=== PATIENT | female | born 1985 | race Caucasian/White ===

== ENCOUNTER → 2016-11-18 | Outpatient (CLI) | payer OTHER ==
[2016-07-14 18:05] VITALS: BP 120/76
[~2016-11-18] MED LIST: METR500T PO; NITR100C62 PO; PREN1TAB27 PO
--- NOTE | 2016-11-18 16:33 | RAD ---
Indication: Dysphagia. Thyromegaly. Technique: Thyroid ultrasound was performed. No comparison is available. Findings: Right thyroid lobe is enlarged, 6.3 x 2.0 x 2.7 cm in size. The left measures 5.0 x 1.5 x 1.4 cm. The isthmus measures 4 mm. There is a dominant solid nodule in the right thyroid lobe measuring 3.5 cm. Color flow within the thyroid is not increased or decreased. Impression: Dominant right thyroid nodule, solid.
== END | disposition home or self-care (01) ==
LOC: US 12:57
PROVIDERS: ATTEND Specialist
DX: E01.0 Iodine-deficiency related diffuse (endemic) goiter (principal)
CPT/HCPCS: 76536

== ENCOUNTER 2016-12-16 08:50 | Day surgery (SDC) | payer OTHER ==
[~2016-12-16] VITALS: Ht 165.1 cm; Wt 87.1 kg
[~2016-12-16 08:50] MED LIST changes: +BUPIVAC MPF-EPI 0.5%-1:200000 30 ML VIAL. ONE; +CEFOXITIN 2GM IVPB FOR OMNI 100 ML IV PRN; +DOCU-27 PO; +FENTANYL PF 100 MCG/2 ML VIAL. IV PRN; +GELATIN SPONGE SIZE 100. ONE; +HYDROMORPHONE 2 MG/ML VIAL. IV PRN; +IV RINGERS,LACTATED 1000ML 1,000 ML IV SCH; +LIDOCAINE 1% 1 ML SYRINGE. ID PRN; +MORPHINE SULFATE 2 MG/ML DISP.SYRIN. IV PRN; +ONDANSETRON PF 4 MG/2 ML VIAL. IV PRN; +POLY17PO5 PO; +PROCHLORPERAZINE 10 MG/2 ML VIAL. IV PRN
[2016-12-16 09:48] LABS: NEG OBC UR NEG; POS OBC UR POS
[2016-12-16] MEDS ORDERED: PROPOFOL 20 ML IV ONE (10:51)
[2016-12-16] MEDS ORDERED: FENTANYL PF 100 MCG/2 ML VIAL. ONE (10:51)
[2016-12-16] MEDS ORDERED: LIDOCAINE 2% 100 MG/5 ML SYRINGE. ONE (10:51)
[2016-12-16] MEDS ORDERED: EPHEDRINE PF IN SALINE 50 MG/5 ML DISP.SYRIN. IV ONE (11:01)
[2016-12-16] MEDS ORDERED: DESFLURANE 16 TO 30 MINUTES. IH ONE (11:01)
[2016-12-16] MEDS ORDERED: DEXAMETHASONE SOD PHOS 20 MG/5 ML VIAL. ONE (11:01)
[2016-12-16] MEDS ORDERED: ONDANSETRON PF 4 MG/2 ML VIAL. ONE (11:08)
[2016-12-16] MEDS ORDERED: ONDA4TAB7 PO (11:41)
[2016-12-16] MEDS ORDERED: OXYC-323 PO (11:41)
--- NOTE | 2016-12-16 11:42 | PDOC ---
BRIEF OPERATIVE NOTE Pre-Op Diagnosis hemorrhoid eua, hemorrhoidectomy mayco teixeira ebl 10 ivf 400 scarlet well to rr stable. UMU LOCO MD Dec 16, 2016 11:42
[2016-12-16] MEDS ORDERED: KETOROLAC TROMETHAMINE 30 MG/ML INJ. ONE (11:43)
[2016-12-16] MEDS: FENTANYL PF 100 MCG/2 ML VIAL. IV PRN ×2 (12:00→12:19)
[2016-12-16] MEDS ORDERED: OXYCODONE/APAP 5/325 TABLET. ONE (12:22)
[2016-12-16] MEDS ORDERED: KETOROLAC TROMETHAMINE 30 MG/ML INJ. IV ONE (12:30)
[2016-12-16 12:53] VITALS: BP 112/60
[2016-12-16] MEDS ORDERED: OXYCODONE/APAP 5/325 TABLET. PO ONE (13:00)
--- NOTE | 2016-12-16 17:52 | OP ---
DATE OF SURGERY: 12/16/2016 PREOPERATIVE DIAGNOSIS: Hemorrhoids. POSTOPERATIVE DIAGNOSIS: Hemorrhoids. PROCEDURES: 1. Exam under anesthesia. 2. Single column internal and external hemorrhoidectomy. 3. Single column external hemorrhoidectomy. SURGEON: Umu Loco M.D. ANESTHESIA: General. ESTIMATED BLOOD LOSS: 10 mL. IV FLUIDS: 400 mL. INDICATIONS: The patient is a 31-year-old female who presents with hemorrhoids that she would like to have excised. DESCRIPTION OF PROCEDURE: After informed consent was obtained, the patient was taken to the operating room and placed in supine position. After adequate induction of general anesthesia, she was placed on left lateral side and she was prepped and draped in usual sterile fashion with her buttocks taped apart. Local was used to perform a perianal block and then digital exam was performed which revealed decreased tone as expected, no gross blood, no rectal masses. She had a very large external hemorrhoid tag anteriorly and then she had a prolapsing left lateral hemorrhoid. A speculum was used to perform an exam under anesthesia circumferentially in the anal canal and there was minimal hemorrhoidal disease other than what was described. Using the LigaSure impact, the hemorrhoid on the left was elevated. The skin of the external hemorrhoid was incised with a scalpel and then the handheld LigaSure was then used to excise the hemorrhoid at its space. The care was taken to make sure that the sphincter muscles were left undisturbed with 2-0 chromic suture was then used to close the mucosal defect and care was taken to reapproximate the dentate line. The area was hemostatic. Her large external anteriorly located hemorrhoid was then incised at the skin at its base with a scalpel and then LigaSure was then used to remove the hemorrhoid. The dermal defect was then closed with 2-0 chromic in a running fashion. The patient's anal canal was inspected and was hemostatic and she was then transferred in stable condition, extubated, awaken to the recovery room. UMU LOCO MD DR: REYNALDO/pako JOB#: [id number] / [id number] Deangelo Grey
--- NOTE | 2016-12-17 15:39 | PATHOLOGY ---
PATHOLOGY REPORT * * * * * * * * FINAL DIAGNOSIS: A. Skin and anorectal mucosa and underlying soft tissue, left lateral hemorrhoids: - Hemorrhoids. B. Skin, external anterior hemorrhoids: - Fibroepithelial polyp showing focal chronic inflammation. COMMENT: There is no evidence of malignancy. (ANNAM:; d/t: 12/17/16) REPORT ELECTRONICALLY SIGNED BY: Sherman Dotson M.D. DATE/TIME: 12/17/2016 15:37 * * * * * * * * GROSS PATHOLOGY: A. Received in formalin labeled "Gretta Gill and left lateral hemorrhoid," are 2 segments of hogan-pink epithelial covered tissue measuring 0.8 x 0.4 x 0.3 cm and 2.8 x 1.5 x 1.2 cm in maximum dimensions. The epithelial surfaces appear intact, without grossly apparent lesions. On cut section, the subepithelial tissue has a highly vascular appearance. [employer] Specialist tissue is submitted in cassette A1. B. Received in formalin labeled "Gretta Gill and external anterior hemorrhoid," is a segment of hogan-pink epithelial covered tissue measuring 2.4 x 1.3 x 0.7 cm. The epithelial surface appears intact, without grossly apparent lesions. On cut section, the subepithelial tissue has an edematous appearance. Employment Law Specialist tissue is submitted in cassette B1. (TTL; 12/16/2016) INITIAL CPT CODE(S): A; 96185 B; 05273 Professional services [place] [facility] [place] [address] Technical services performed by [facility] at [address] [place] [address], [facility] [address] [place] [address]. SPECIMEN(S) RECEIVED: A.Left lateral hemorrhoids B.External anterior hemorrhoids CLINICAL HISTORY: Internal and external hemorrhoids PATIENT: GRETTA GILL /AGE: 2 1985 (Age: 31) PATIENT #: [id number] ALT CASE #: SPECIMEN COLLECTION DATE: 12/16/2016 SPECIMEN RECEIVED DATE: 12/16/2016 [facility] - [address] [place] [address] - PHONE: [phone] * * * END OF REPORT * * *
== END 2016-12-16 13:15 | disposition home or self-care (01) ==
LOC: SURG 08:50
PROVIDERS: ATTEND Surgery
DX: K64.8 Other hemorrhoids (principal); F32.9 Major depressive disorder, single episode, unspecified; Z98.51 Tubal ligation status
CPT/HCPCS: 46999; 81025; A4215; J0780; J1100; J1885; J2405; J2704; J3010; J3490

== ENCOUNTER 2017-01-01 13:16 | Emergency (ER) | payer OTHER ==
[~2017-01-01 13:16] MED LIST changes: -BUPIVAC MPF-EPI 0.5%-1:200000 30 ML VIAL. ONE; -CEFOXITIN 2GM IVPB FOR OMNI 100 ML IV PRN; -FENTANYL PF 100 MCG/2 ML VIAL. IV PRN; -GELATIN SPONGE SIZE 100. ONE; -HYDROMORPHONE 2 MG/ML VIAL. IV PRN; -IV RINGERS,LACTATED 1000ML 1,000 ML IV SCH; -LIDOCAINE 1% 1 ML SYRINGE. ID PRN; -MORPHINE SULFATE 2 MG/ML DISP.SYRIN. IV PRN; +ONDA4TAB7 PO; -ONDANSETRON PF 4 MG/2 ML VIAL. IV PRN; +OXYC-323 PO; -PROCHLORPERAZINE 10 MG/2 ML VIAL. IV PRN
[2017-01-01 14:05] VITALS: BP 127/72
[2017-01-01] MEDS: LIDOCAINE 1% / SOD BICARB 8.4% 20 ML VIAL. IJ ONE ×2 (14:30→14:31)
[2017-01-01] MEDS ORDERED: DIPHTH,PERTUSS(ACELL),TET TOX 0.5 ML DISP.SYRIN. VAX IM ONE (14:30)
[2017-01-01] MEDS ORDERED: HYDROCODONE/APAP 5/325MG TABLET. PO ONE (14:30)
[2017-01-01] MEDS ORDERED: HYDR-971 PO (14:47)
[2017-01-01] MEDS ORDERED: CLIN-44 PO (14:47)
--- NOTE | 2017-01-01 14:48 | PHYS DOC ---
Past Medical History Past Medical History: Other Additional Past Medical Histor: Hemmorrhoids, thyroid mass Past Surgical History: Tubal ligation Additional Past Surgical Histo: ortho right arm, hemmorrhoidectomy Alcohol Use: None Drug Use: None Adult General Chief Complaint Chief Complaint: ABSCESS HPI HPI Patient is a 31 year old female with no significant medical history who presents with an abscess on the left inner thigh that she noted 3 days ago. Patient states she's been using a warm compress on the abscess. Patient denies any drainage from the area. Review of Systems Review of Systems Constitutional: See history of present illness Musculoskeletal: Denies back pain or joint pain [] Integument: Left inner thigh abscess Neurologic: Denies headache, focal weakness or sensory changes [] Endocrine: Denies polyuria or polydipsia [] Current Medications Current Medications Current Medications Medications (Trade) Dose Ordered Sig/Sharona Start Time Stop Time Status Last Admin Dose Admin Acetaminophen/ Hydrocodone Bitart (Lortab 5/325) 1 tab 1X ONCE 01/01/17 14:30 01/01/17 14:31 DC 01/01/17 14:31 1 TAB Diphtheria/ Tetanus/Acell Pertussis (Boostrix) 0.5 ml ONCE ONCE 01/01/17 14:30 01/01/17 14:31 DC 01/01/17 14:34 0.5 ML Lidocaine/Sodium Bicarbonate (Buffered Lidocaine 1%) 20 ml 1X ONCE 01/01/17 14:30 01/01/17 14:52 DC Allergies Allergies Allergies Coded Allergies Type Severity Reaction Last Updated Verified No Known Drug Allergies 12/16/16 No Physical Exam Physical Exam Constitutional: Well developed, well nourished, no acute distress, non-toxic appearance. [] HENT: Normocephalic, atraumatic, bilateral external ears normal, oropharynx moist, no oral exudates, nose normal. [] Skin: Left inner thigh with a 90 related area of cellulitis approximately 4 x 3 cm. There is a 1 x 1 cm or firmness in the middle of the area. This no fluctuance to the area. The area is warm to touch and very tender. Normal neurovascular exam on the left lower extremity. Back: No tenderness, no CVA tenderness. [] Extremities: No tenderness, no cyanosis, no clubbing, ROM intact, no edema. [] Neurologic: Alert and oriented X 3, normal motor function, normal sensory function, no focal deficits noted. [] Psychologic: Affect normal, judgement normal, mood normal. [] Current Patient Data Vital Signs Vital Signs Date Time Temp Pulse Resp B/P Pulse Ox O2 Delivery O2 Flow Rate FiO2 01/01/17 14:31 16 98 Room Air 01/01/17 14:05 98.4 77 98.4 EKG EKG [] Radiology/Procedures Radiology/Procedures [] Course & Med Decision Making Course & Med Decision Making Pertinent Labs and Imaging studies reviewed. (See chart for details) Patient is in the ED with an area of cellulitis with possible abscess formation on the left lower extremity is nothing to drain today. She was given tetanus in the ED. Discharged with clindamycin for 10 days. Warm compresses recommended. Follow-up with primary care doctor in one week. Dragon Disclaimer Dragon Disclaimer This electronic medical record was generated, in whole or in part, using a voice recognition dictation system. Departure Departure Impression: Primary Impression: Abscess of lower extremity Additional Impression: Lower extremity cellulitis Disposition: 01 HOME, SELF-CARE Condition: STABLE Referrals: DORINDA PETIT MD (PCP) Follow-up with the primary care doctor in 1-2 weeks Patient Instructions: Abscess Additional Instructions: You were seen for an abscess of the left inner thigh. Keep the area clean and dry. Apply warm compresses to the area 2- 3 times a day. Follow-up with your primary care doctor in one week. Come back to the ED if symptoms worsen or if you develop any new concerning symptoms. Complete your antibiotics. You were given tetanus in the ED today. Scripts Hydrocodone/Apap 5-325 ([place] 5-325 Tablet)1 Each Tablet1-2 Tab PO Q4-6HRS #12 TAB Prov:KUNAL LLANOS APRN 01/01/17 Clindamycin Hcl 150 Mg Capsule3 Cap PO TID #90 CAP Prov:KUNAL LLANOS APRN 01/01/17 Problem Qualifiers Additional Impression: Lower extremity cellulitis Laterality: left Qualified Code: L03.116 - Cellulitis of left lower limb KUNAL LLANOS APRN Jan 01, 2017 14:48
== END 2017-01-01 14:52 | disposition home or self-care (01) ==
LOC: ER 13:16
DX: L03.116 Cellulitis of left lower limb (principal)
CPT/HCPCS: 90471; 90715; 99283-25

== ENCOUNTER 2017-02-07 14:13 | Emergency (ER) | payer OTHER ==
[~2017-02-07] VITALS: Ht 167.6 cm; Wt 86.2 kg
[~2017-02-07 14:13] MED LIST changes: +CLIN-44 PO; +HYDR-971 PO; +POLY17PO29 PO; -POLY17PO5 PO
--- NOTE | 2017-02-07 15:03 | PHYS DOC ---
Past Medical History Past Medical History: Other Additional Past Medical Histor: Hemmorrhoids, thyroid mass Past Surgical History: Tubal ligation Additional Past Surgical Histo: ortho right arm, hemmorrhoidectomy Alcohol Use: None Drug Use: None Adult General Chief Complaint Chief Complaint: ABSCESS HPI HPI Patient is a 31 year old female with history of abscesses who presents today with left lower abdominal abdominal abscess that began 3 days ago. Patient states she was treated for another abscess 3 weeks ago. Review of Systems Review of Systems Constitutional: Denies fever or chills [] Eyes: Denies change in visual acuity, redness, or eye pain [] HENT: Denies nasal congestion or sore throat [] Musculoskeletal: Denies back pain or joint pain [] Integument: left lower abdominal abdominal abscess Neurologic: Denies headache, focal weakness or sensory changes [] Endocrine: Denies polyuria or polydipsia [] Allergies Allergies Allergies Coded Allergies Type Severity Reaction Last Updated Verified No Known Drug Allergies 12/16/16 No Physical Exam Physical Exam Constitutional: Well developed, well nourished, no acute distress, non-toxic appearance. [] HENT: Normocephalic, atraumatic, bilateral external ears normal, oropharynx moist, no oral exudates, nose normal. [] Skin: Left lower abdomen with an area of cellulitis approximately 5 x 4 cm. There is no drainage to the area. The area is warm to touch. No fluctuance. Back: No tenderness, no CVA tenderness. [] Extremities: No tenderness, no cyanosis, no clubbing, ROM intact, no edema. [] Neurologic: Alert and oriented X 3, normal motor function, normal sensory function, no focal deficits noted. [] Psychologic: Affect normal, judgement normal, mood normal. [] EKG EKG [] Radiology/Procedures Radiology/Procedures [] Course & Med Decision Making Course & Med Decision Making Pertinent Labs and Imaging studies reviewed. (See chart for details) Patient has cellulitis to the left lower abdomen. She was discharged with Bactrim for 10 days and Bactroban. She was given a prescription for hydrocodone. She is to follow-up with her PCP in 1-2 weeks. Her tetanus is up-to -date. Dragon Disclaimer Dragon Disclaimer This electronic medical record was generated, in whole or in part, using a voice recognition dictation system. Departure Departure Impression: Primary Impression: Cellulitis of left abdominal wall Disposition: 01 HOME, SELF-CARE Condition: STABLE Referrals: DORINDA PETIT MD (PCP) Follow-up with the primary care doctor in one week Patient Instructions: Cellulitis, [id number] Additional Instructions: You were seen for cellulitis of the left lower abdomen. Take the prescribed medicines as ordered. Ensure you complete your oral antibiotics. Follow-up with the primary care doctor in 1-2 weeks. Scripts Mupirocin Calcium (BACTROBAN CREAM) 15 Gm Cream..g. 1 PRIYA TP BID, #1 EACH Apply to the affected area twice a day Prov: KUNAL LLANOS APRN 02/07/17 Sulfamethoxazole/Trimethoprim (BACTRIM DS TABLET) 1 Each Tablet 1 TAB PO BID, #20 TAB Prov: KUNAL LLANOS APRN 02/07/17 KUNAL LLANOS APRN Feb 07, 2017 15:03
[2017-02-07] MEDS ORDERED: SULF1TAB24 PO (15:12)
[2017-02-07] MEDS ORDERED: MUPI15CR TP (15:12)
[2017-02-07 15:20] VITALS: BP 125/93
[2017-02-08] MEDS ORDERED: HYDR-971 PO (22:13)
== END 2017-02-07 15:27 | disposition home or self-care (01) ==
LOC: ER 14:13
DX: L03.311 Cellulitis of abdominal wall (principal); Z98.51 Tubal ligation status
CPT/HCPCS: 99283

== ENCOUNTER 2017-02-08 20:53 | Emergency (ER) | payer OTHER ==
[~2017-02-08] VITALS: Ht 167.6 cm; Wt 86.2 kg
[~2017-02-08 20:53] MED LIST changes: -CLIN-44 PO; +CLIN150C14 PO; +DOCU-109 PO; -DOCU-27 PO; +MUPI15CR TP; +SULF1TAB24 PO
--- NOTE | 2017-02-08 21:56 | PHYS DOC ---
Past Medical History Past Medical History: Other Additional Past Medical Histor: Hemmorrhoids, thyroid mass Past Surgical History: Tubal ligation Additional Past Surgical Histo: ortho right arm, hemmorrhoidectomy Alcohol Use: None Drug Use: None Adult General Chief Complaint Chief Complaint: SKIN RASH/ABSCESS [facility] HPI Patient is a 31 year old female with a history of abscesses who presents with abdominal abscess for the last 3-4 days. Patient was in the ED yesterday. We started her on Bactrim. She presents today stating the infection has not improved. She has taken the medicine less than 24 hours. Patient denies any fever. She is also complaining of pain and wants something for pain. Patient denies any chills nausea vomiting. Her tetanus is up-to-date. Review of Systems Review of Systems Constitutional: Denies fever or chills [] Eyes: Denies change in visual acuity, redness, or eye pain [] HENT: Denies nasal congestion or sore throat [] Respiratory: Denies cough or shortness of breath [] Cardiovascular: No additional information not addressed in HPI [] GI: Denies abdominal pain, nausea, vomiting, bloody stools or diarrhea [] : Denies dysuria or hematuria [] Musculoskeletal: Denies back pain or joint pain [] Integument: abdominal abscess Neurologic: Denies headache, focal weakness or sensory changes [] Endocrine: Denies polyuria or polydipsia [] Current Medications Current Medications Current Medications Medications (Trade) Dose Ordered Sig/Sharona Start Time Stop Time Status Last Admin Dose Admin Acetaminophen/ Hydrocodone Bitart (Lortab 5/325) 1 tab 1X ONCE 02/08/17 22:00 02/08/17 22:01 DC Ceftriaxone Sodium 50 ml @ 100 mls/hr 1X ONCE 02/08/17 22:00 02/08/17 22:29 Lidocaine HCl (Xylocaine-Mpf 1% Vial) 2 ml 1X ONCE 02/08/17 22:00 02/08/17 22:01 DC Allergies Allergies Allergies Coded Allergies Type Severity Reaction Last Updated Verified No Known Drug Allergies 12/16/16 No Physical Exam Physical Exam Constitutional: Well developed, well nourished, no acute distress, non-toxic appearance. [] HENT: Normocephalic, atraumatic, bilateral external ears normal, oropharynx moist, no oral exudates, nose normal. [] Eyes: PERRLA, EOMI, conjunctiva normal, no discharge. [] Neck: Normal range of motion, no tenderness, supple, no stridor. [] Cardiovascular:Heart rate regular rhythm, no murmur [] Lungs & Thorax: Bilateral breath sounds clear to auscultation [] Abdomen: Bowel sounds normal, soft, no tenderness, no masses, no pulsatile masses. [] Skin: left lower abdomen with a large area of cellulitis bigger that when i saw patient yesterday. The area is warm but not TTP. Back: No tenderness, no CVA tenderness. [] Extremities: No tenderness, no cyanosis, no clubbing, ROM intact, no edema. [] Neurologic: Alert and oriented X 3, normal motor function, normal sensory function, no focal deficits noted. [] Psychologic: Affect normal, judgement normal, mood normal. [] EKG EKG [] Radiology/Procedures Radiology/Procedures [] Course & Med Decision Making Course & Med Decision Making Pertinent Labs and Imaging studies reviewed. (See chart for details) Patient is in the ED with cellulitis of the left lower abdomen that began 3-4 days ago. Patient was seen in the ED by me yesterday for the same complaint. The area has grown bigger. She was started on Bactrim and Bactroban cream. She has no fever. I talked to patient about admission compared to outpatient treatment. Patient states she has a 7-month-old baby and cannot be away from the baby. I had offered to switch the prescription to another antibiotics. She states she would like to keep taking the Bactrim because she has only taken it for one day and would like something for pain. She also states she took clindamycin a couple days prior to coming to the ED. The clindamycin was from a previous prescription that she never finished. Gave patient the risk of leaving. She was given Rocephin 1 g IM in the ED. She was also given a prescription for hydrocodone and encouraged to take the Bactrim and Bactroban cream. Informed patient she is welcomed to return to the ED at any for admission if the infection is not improving. Requested patient she can return to the ED in 2 days and will take a look at the infection to make sure it's improving. Renate Disclaimer Renate Disclaimer This electronic medical record was generated, in whole or in part, using a voice recognition dictation system. Departure Departure Impression: Primary Impression: Abdominal wall cellulitis Disposition: HOME, SELF-CARE Condition: STABLE Referrals: DORINDA PETIT MD (PCP) Follow-up with the emergency room in 2 days for wound check Patient Instructions: Cellulitis, [id number] Additional Instructions: You were seen for cellulitis of the left lower abdomen. The area has increased in size. We offered you admission to the hospital for IV antibiotics. You preferred to go home. We put you on pain medicine and continue taking the Bactrim and using Bactroban cream. Come back in 2 days well evaluate the area and see if it's improving or not. If it's not improving we will consider to admit or switching to a different antibiotic altogether. Scripts Hydrocodone/Apap 5-325 (NORCO 5-325 TABLET) 1 Each Tablet 1-2 TAB PO Q4-6HRS, #20 TAB Prov: KUNAL LLANOS APRN 02/08/17 KUNAL LLANOS APRN Feb 08, 2017 21:56
[2017-02-08 21:58] VITALS: BP 112/60
[2017-02-08] MEDS ORDERED: HYDROcodone/APAP 5/325MG 1 TAB TABLET PO ONE (22:00)
[2017-02-08] MEDS ORDERED: LIDOCAINE 1% PF 2 ML VIAL. INJ ONE (22:00)
[2017-02-08] MEDS ORDERED: HYDR-971 PO (22:13)
[2017-02-08] MEDS ORDERED: cefTRIAXone IM 1 GM VIAL IM ONE (22:30)
[2017-02-15] MEDS ORDERED: SULF1TAB24 PO (08:51)
[2017-02-15] MEDS ORDERED: CIPR500T94 PO (08:51)
== END 2017-02-08 22:47 | disposition home or self-care (01) ==
LOC: ER 20:53
DX: L03.311 Cellulitis of abdominal wall (principal); E07.9 Disorder of thyroid, unspecified; Z98.51 Tubal ligation status
CPT/HCPCS: 96372; 99284; J0696; 99283-25

== ENCOUNTER → 2017-02-19 | Outpatient (CLI) | payer OTHER ==
[2017-02-15 11:00] VITALS: BP 112/66
[~2017-02-19] MED LIST changes: +CIPR500T94 PO
== END | disposition home or self-care (01) ==
LOC: PMGWOUND 08:03
PROVIDERS: ATTEND Preventive Medicine Undersea and Hyperbaric Medicine
DX: L02.211 Cutaneous abscess of abdominal wall (principal); F32.9 Major depressive disorder, single episode, unspecified; E66.9 Obesity, unspecified; Z68.30 Body mass index [BMI] 30.0-30.9, adult
CPT/HCPCS: 99214

== ENCOUNTER 2017-03-19 12:02 | Emergency (ER) | payer OTHER ==
[~2017-03-19] VITALS: Ht 167.6 cm; Wt 86.2 kg
[2017-03-19 13:06] VITALS: BP 100/66
--- NOTE | 2017-03-19 13:44 | PHYS DOC ---
Past Medical History Past Medical History: Other Additional Past Medical Histor: Hemmorrhoids, thyroid mass, mrsa Past Surgical History: Tubal ligation Additional Past Surgical Histo: ortho right arm, hemmorrhoidectomy Alcohol Use: None Drug Use: None Adult General Chief Complaint Chief Complaint: ABDOMINAL PAIN HPI HPI Patient is a 31 year old female who presents with history of bilateral tubal ligation and hemorrhoidectomy remote history of chlamydia presents with a 3 week history of some pelvic pain but denies vaginal discharge or bleeding the last menstrual period was little over 1 month ago. No nausea vomiting diarrhea no dysuria or frequency or flank pain. Appetite is good. Review of Systems Review of Systems Constitutional: Denies fever or chills [] Eyes: Denies change in visual acuity, redness, or eye pain [] HENT: Denies nasal congestion or sore throat [] Respiratory: Denies cough or shortness of breath [] Cardiovascular: No additional information not addressed in HPI [] GI: Denies abdominal pain, nausea, vomiting, bloody stools or diarrhea [] : Denies dysuria or hematuria [] Musculoskeletal: Denies back pain or joint pain [] Integument: Denies rash or skin lesions [] Neurologic: Denies headache, focal weakness or sensory changes [] Endocrine: Denies polyuria or polydipsia [] Allergies Allergies Allergies Coded Allergies Type Severity Reaction Last Updated Verified I S O L A T I O N *CONTACT* Allergy Unknown 02/15/17 Yes No Known Medication Allergies Allergy Unknown 02/15/17 Yes Physical Exam Physical Exam Constitutional: Well developed, well nourished, no acute distress, non-toxic appearance. [] HENT: Normocephalic, atraumatic, bilateral external ears normal, oropharynx moist, no oral exudates, nose normal. [] Eyes: PERRLA, EOMI, conjunctiva normal, no discharge. [] Neck: Normal range of motion, no tenderness, supple, no stridor. [] Cardiovascular:Heart rate regular rhythm, no murmur [] Lungs & Thorax: Bilateral breath sounds clear to auscultation [] Abdomen: Bowel sounds normal, soft, no tenderness, no masses, no pulsatile masses. Except for minimal mild pelvic tenderness. [] Skin: Warm, dry, no erythema, no rash. [] Back: No tenderness, no CVA tenderness. [] Extremities: No tenderness, no cyanosis, no clubbing, ROM intact, no edema. [] Neurologic: Alert and oriented X 3, normal motor function, normal sensory function, no focal deficits noted. [] Psychologic: Affect normal, judgement normal, mood normal. [] Current Patient Data Vital Signs Vital Signs Date Time Temp Pulse Resp B/P (MAP) Pulse Ox O2 Delivery O2 Flow Rate FiO2 03/19/17 13:06 98.0 87 16 100/66 (77) 95 Room Air 98.0 Lab Values Laboratory Tests Test 03/19/17 12:18 03/19/17 13:15 POC Urine HCG, Qualitative Hcg negative (Negative) Urine Collection Type Unknown Urine Color Yellow Urine Clarity Clear Urine pH 6.0 Urine Specific [place] 1.020 Urine Protein Negative mg/dL (NEG-TRACE) Urine Glucose (UA) Negative mg/dL (NEG) Urine Ketones (Stick) Negative mg/dL (NEG) Urine Blood Negative (NEG) Urine Nitrite Negative (NEG) Urine Bilirubin Negative (NEG) Urine Urobilinogen Dipstick 0.2 mg/dL (0.2 mg/dL) Urine Leukocyte Esterase Small (NEG) Urine RBC 0 /HPF (0-2) Urine WBC 1-4 /HPF (0-4) Urine Squamous Epithelial Cells Many /LPF Urine Bacteria Few /HPF (0-FEW) Urine Mucus Marked /LPF Microbiology 03/19/17 Wet Prep - Final, Complete EKG EKG [] Radiology/Procedures Radiology/Procedures [] Course & Med Decision Making Course & Med Decision Making Pertinent Labs and Imaging studies reviewed. (See chart for details) We will check a test UA and vaginal swabs. Urinalysis suggest may be a UTI. Patient had a fairly benign exam we'll treat empirically for a UTI and await culture results for the pelvic swabs. [] Dragon Disclaimer Dragon Disclaimer This electronic medical record was generated, in whole or in part, using a voice recognition dictation system. Departure Departure Impression: Primary Impression: UTI (urinary tract infection) Additional Impression: Pelvic pain Disposition: 01 HOME, SELF-CARE Condition: STABLE Referrals: DORINDA PETIT MD (PCP) Patient Instructions: Pelvic Pain, Female, [id number], Urinary Tract Infection, [id number] Scripts Nitrofurantoin Monohyd/M-Cryst (MACROBID 100 MG CAPSULE) 100 Mg Capsule 1 CAP PO BID, #14 CAP Prov: JAIRO LOPEZ MD 03/19/17 Problem Qualifiers JAIRO LOPEZ MD Mar 19, 2017 13:44
[2017-03-19 13:54] LABS: BILIRUBIN,URINE NEGATIVE (NEG); GLUCOSE,URINE NEGATIVE (NEG); NITRITE,URINE NEGATIVE (NEG); PROTEIN,URINE NEGATIVE (NEG-TRACE); UROBILINOGEN,URINE 0.2 mg/dL (0.2 mg/dL)
[2017-03-19 14:05] LABS: BACTERIA,URINE FEW /HPF (0-FEW); RBC,URINE 0 /HPF (0-2)
[2017-03-19 14:06] LABS: SQUAMOUS EPITHELIAL CELL,UR MANY /LPF
[2017-03-19] MEDS ORDERED: NITR100C62 PO (15:36)
== END 2017-03-19 16:23 | disposition home or self-care (01) ==
LOC: ER 12:02
DX: N39.0 Urinary tract infection, site not specified (principal); R10.2 Pelvic and perineal pain; Z98.51 Tubal ligation status; Z91.041 Radiographic dye allergy status
CPT/HCPCS: 81001; 81025; 87086; 99284; Q0111; 87491; 87591

== ENCOUNTER 2017-05-09 20:06 | Emergency (ER) | payer OTHER ==
[2017-05-09 20:35] VITALS: BP 100/66
[2017-05-09] MEDS ORDERED: oxyCODONE/APAP 5/325 1 TAB TABLET PO ONE (21:15)
[2017-05-09] MEDS ORDERED: diazePAM 5 MG TABLET PO ONE (21:15)
--- NOTE | 2017-05-09 21:33 | PHYS DOC ---
Past Medical History Past Medical History: Other Additional Past Medical Histor: Hemmorrhoids, thyroid mass, MRSA Past Surgical History: Tubal ligation Additional Past Surgical Histo: ortho right arm, hemmorrhoidectomy Alcohol Use: None Drug Use: None Adult General Chief Complaint Chief Complaint: RECTAL BLEED HPI HPI Patient is a 31 year old female with history of hemorrhoidectomy performed spring he presents with intermittent rectal bleeding with painful bowel movements for the past 3 months. Symptoms of worsen the past 2 weeks. Patient was evaluated by her PCP and diagnosed with a rectal fissure. Patient was instructed to take Colace. The patient's been compliant with therapy, but states her pain is pearly controlled. Reports bright red rectal bleeding this morning with bowel movements and upon wiping. Patient states she has had an increase or worsening of symptoms the past week but states she reached a point where she cannot take the pain anymore. Denies dizziness lightheadedness, mucousy stools or diarrhea. No other acute symptoms or complaints. Review of Systems Review of Systems Review symptoms as per history of present illness. All other review symptoms are negative. Current Medications Current Medications Current Medications Medications (Trade) Dose Ordered Sig/Sharona Start Time Stop Time Status Last Admin Dose Admin Diazepam (Valium) 5 mg 1X ONCE 05/09/17 21:15 05/09/17 21:16 DC 05/09/17 21:25 5 MG Oxycodone/ Acetaminophen (Percocet 5/325) 1 tab 1X ONCE 05/09/17 21:15 05/09/17 21:16 DC 05/09/17 21:15 1 TAB Allergies Allergies Allergies Coded Allergies Type Severity Reaction Last Updated Verified I S O L A T I O N *CONTACT* Allergy Unknown 02/15/17 Yes No Known Medication Allergies Allergy Unknown 02/15/17 Yes Physical Exam Physical Exam Constitutional: Well developed, well nourished, no acute distress, non-toxic appearance. [] HENT: Normocephalic, atraumatic, bilateral external ears normal, oropharynx moist, no oral exudates, nose normal. [] Eyes: PERRLA, EOMI : Exquisite rectal pain, patient declines a rectal exam. External anal tags, no bleeding, visible seizure. Rectal spasm noted. Back: No tenderness. [] Extremities: No tenderness, no cyanosis, no clubbing. [] Neurologic: Alert and oriented, normal motor function, normal sensory function, no focal deficits noted. [] Psychologic: Affect normal, judgement normal, mood normal. [] Current Patient Data Vital Signs Vital Signs Date Time Temp Pulse Resp B/P (MAP) Pulse Ox O2 Delivery O2 Flow Rate FiO2 05/09/17 21:15 28 99 Room Air 05/09/17 20:35 98.1 103 100/66 (77) 98.1 EKG EKG [] Radiology/Procedures Radiology/Procedures [] Course & Med Decision Making Course & Med Decision Making Pertinent Labs and Imaging studies reviewed. (See chart for details) [Severe crectal pain with spasm. Unable to appreciate any bleeding on evaluation. Symptoms may be consistent with fissure versus proctalgia fugax this is unknown etiology.] Dragon Disclaimer Dragon Disclaimer This electronic medical record was generated, in whole or in part, using a voice recognition dictation system. Departure Departure Impression: Primary Impression: Anal or rectal pain Disposition: 01 HOME, SELF-CARE Condition: GOOD Patient Instructions: Rectal Bleeding, [id number] Additional Instructions: You were evaluated in the emergency department for rectal plan. Unfortunately, a complete evaluation could not be performed due to your pain level. Please continue stool softeners and take pain medication muscle relaxants as directed and use witch layla baths. Follow-up with Dr. Chatterjee for general surgery or your PCP for further pain management. Return to the ED if new or worsening symptoms. JOHN HILL DO May 09, 2017 21:33
== END 2017-05-09 22:25 | disposition home or self-care (01) ==
LOC: ER 20:52
DX: K62.89 Other specified diseases of anus and rectum (principal); K62.5 Hemorrhage of anus and rectum; Z86.14 Personal history of Methicillin resistant Staphylococcus aureus infection; Z98.51 Tubal ligation status; Z91.041 Radiographic dye allergy status
CPT/HCPCS: 99283

== ENCOUNTER 2017-09-05 09:09 | Emergency (ER) | payer OTHER ==
[2017-09-05] MEDS: IV NORMAL SALINE 1000ML BAG 1,000 ML IV (09:37)
[2017-09-05 09:38] LABS: ADD MAN DIFF? NO
[2017-09-05] MEDS: ONDANSETRON PF 4 MG/2 ML VIAL. IV (09:38)
[2017-09-05] MEDS: LIDO:MAALOX:DONNATAL 1:1:1 15 ML SINGLE DOSE SWSW (09:40)
[2017-09-05 09:41] LABS: BASO # 0.1 x10^3/uL (0.0-0.2); BASO % 1 % (0-3); EOS # 0.2 x10^3/uL (0.0-0.7); EOS % 2 % (0-3); HEMATOCRIT 46.4 % (36.0-47.0); HEMOGLOBIN 15.3 g/dL (12.0-15.5); LYMPH # 2.8 x10^3/uL (1.0-4.8); LYMPH % 25 % (24-48); MEAN CORPUSCULAR HEMOGLOBIN 29 pg (25-35); MEAN CORPUSCULAR HGB CONC 33 g/dL (31-37); MEAN CORPUSCULAR VOLUME 87 fL (79-100); MONO # 0.5 x10^3/uL (0.0-1.1); MONO % 4 % (0-9); NEUT # 7.6 x10^3uL (1.8-7.7); NEUT % 68 % (31-73); PLATELET COUNT 302 x10^3/uL (140-400); RED BLOOD COUNT 5.33 x10^6/uL (3.50-5.40); RED CELL DISTRIBUTION WIDTH 13.7 % (11.5-14.5); WHITE BLOOD COUNT 11.1 x10^3/uL (4.0-11.0)
[2017-09-05 09:51] LABS: ANION GAP 10 (6-14); BLOOD UREA NITROGEN 9 mg/dL (7-20); BUN/CREATININE RATIO 13 (6-20); CALCIUM 8.7 mg/dL (8.5-10.1); CARBON DIOXIDE 25 mmol/L (21-32); CHLORIDE 105 mmol/L (98-107); CREATININE 0.7 mg/dL (0.6-1.0); GFR 98.9; GLUCOSE 106 mg/dL (70-99); POTASSIUM 4.3 mmol/L (3.5-5.1); SODIUM 140 mmol/L (136-145)
[2017-09-05 09:56] LABS: ALBUMIN 3.6 g/dL (3.4-5.0); ALBUMIN/GLOBULIN RATIO 0.8 (1.0-1.7); ALK PHOS 108 U/L (46-116); ALT (SGPT) 20 U/L (14-59); AMYLASE 22 U/L (25-115); AST (SGOT) 18 U/L (15-37); LIPASE 113 U/L (73-393); TOTAL BILIRUBIN 0.3 mg/dL (0.2-1.0); TOTAL PROTEIN 8.1 g/dL (6.4-8.2)
[2017-09-05] MEDS: KETOROLAC 30 MG/ML INJ. IV (10:10)
== END 2017-09-05 10:27 | disposition home or self-care (01) ==
LOC: ER 09:09
DX: R10.13 Epigastric pain (principal); R68.83 Chills (without fever); Z91.041 Radiographic dye allergy status
CPT/HCPCS: 36415; 80053; 82150; 83690; 85025; 96361; 96374; 96375; 99284-25; J1885; J2405; J7030

== ENCOUNTER → 2018-03-25 | Outpatient (CLI) | payer OTHER | END | disposition home or self-care (01) | LOC: US 06:54 | DX: E04.1 Nontoxic single thyroid nodule (principal); E66.9 Obesity, unspecified | CPT/HCPCS: 76536 ==

== ENCOUNTER → 2018-12-01 | Outpatient (CLI) | payer OTHER ==
[2017-09-05 09:12] VITALS: BP 124/70
[~2018-12-01] MED LIST changes: +HYDR-3164 PO; -HYDR-971 PO; -OXYC-323 PO; +OXYC1TAB15 PO
--- NOTE | 2018-12-01 16:45 | RAD ---
Thyroid ultrasound, 12/01/2018: HISTORY: Goiter The right lobe of the gland measures 6.1 x 1.6 x 1.7 cm while the left lobe of the gland measures 3.7 x 1.5 x 1.2 cm. There is a 3.8 x 2.3 x 1.6 cm solid mass in the lower pole of the right lobe of the gland extending into the isthmus. It measured 3.5 cm in greatest dimension on the study of 03/25/2018. There is internal color flow. The mass is heterogeneous and is predominantly mildly hypoechoic relative to the remainder of the gland. It contains numerous punctate radiopacities, some of which may be calcifications. Its margins are smooth. It is wider than tall. No other thyroid mass is seen. IMPRESSION: Large solid right thyroid nodule as described above with possible slight interval increase in size. Ultrasound-guided biopsy is suggested for further evaluation. Electronically signed by: Vivek Ga MD (12/01/2018 4:42 PM) [facility]
== END | disposition home or self-care (01) ==
LOC: US 16:00
PROVIDERS: ATTEND Family Medicine
DX: E04.1 Nontoxic single thyroid nodule (principal)
CPT/HCPCS: 76536

== ENCOUNTER 2020-05-10 18:49 | Emergency (ER) | payer MEDICAID, OTHER ==
[~2020-05-10] VITALS: Ht 167.6 cm; Wt 93.1 kg
[2020-05-10] MEDS ORDERED: AMOX1TAB61 PO (19:27)
[2020-05-10] MEDS ORDERED: TRAM-48 PO (19:27)
--- NOTE | 2020-05-10 19:27 | PHYS DOC ---
Past Medical History Past Medical History: MRSA, Other Additional Past Medical Histor: Hemorrhoids,thyroid mass Past Surgical History: Tubal ligation Additional Past Surgical Histo: ortho right arm, hemorrhoidectomy Smoking Status: Never Smoker Alcohol Use: None Drug Use: None General Adult EDM: Chief Complaint: ABSCESS HPI: HPI: Patient is a 34 year old female past medical history anxiety depression hypothyroid presents for evaluation of rectal pain. Patient states she has had pain x 2 days progressively becoming worse. Patient has pain to palpation pain with ambulation. Patient with previous history of hemorroid surgery 3 years ago. 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 There is no overlying cellulitis. Area is tender to palpation Patient is accompanied with family.--- I discussed treatment options which includes incision. Patient is agreeable with plan. Review of Systems: Review of Systems: Constitutional: Denies fever or chills. [] Eyes: Denies change in visual acuity. [] HENT: Denies nasal congestion or sore throat. [] Respiratory: Denies cough or shortness of breath. [] Cardiovascular: Denies chest pain or edema. [] GI: Denies abdominal pain, nausea, vomiting, bloody stools or diarrhea. [rectal pain-hemorrhoid] : Denies dysuria. [] Musculoskeletal: Denies back pain or joint pain. [] Integument: Denies rash. Neurologic: Denies headache, focal weakness or sensory changes. [] Endocrine: Denies polyuria or polydipsia. [] Lymphatic: Denies swollen glands. [] Psychiatric: Denies depression or anxiety. [] Heart Score: Risk Factors: Risk Factors: DM, Current or recent (<one month) smoker, HTN, HLP, family history of CAD, obesity. Risk Scores: Score 0 - 3: 2.5% MACE over next 6 weeks - Discharge Home Score 4 - 6: 20.3% MACE over next 6 weeks - Admit for Clinical Observation Score 7 - 10: 72.7% MACE over next 6 weeks - Early Invasive Strategies Allergies: Allergies: Allergies Coded Allergies Type Severity Reaction Last Updated Verified I S O L A T I O N *CONTACT* Allergy Unknown 02/15/17 Yes No Known Medication Allergies Allergy Unknown 02/15/17 Yes Physical Exam: PE: Constitutional: Well developed, well nourished, no acute distress, non-toxic appearance. [] HENT: Normocephalic, atraumatic, bilateral external ears normal, oropharynx moist, no oral exudates, nose normal. [] Eyes: PERRLA, EOMI, conjunctiva normal, no discharge. [] Neck: Normal range of motion, no tenderness, supple, no stridor. [] Cardiovascular:Heart rate regular rhythm, no murmur [] Lungs & Thorax: Bilateral breath sounds clear to auscultation [] Abdomen: Bowel sounds normal, soft, no tenderness, no masses, no pulsatile masses. [] Skin: Warm, dry, no erythema, no rash. Back: No tenderness, no CVA tenderness. [] Extremities: No tenderness, no cyanosis, no clubbing, ROM intact, no edema. [] Neurologic: Alert and oriented X 3, normal motor function, normal sensory function, no focal deficits noted. [] Psychologic: Affect normal, judgement normal, mood normal. [] Rectum- hemorrhoid left to rectum area size of quarter portion area is firm and another fluctant with overlying ecchymosis Current Patient Data: Vital Signs: Vital Signs Date Time Temp Pulse Resp B/P (MAP) Pulse Ox O2 Delivery O2 Flow Rate FiO2 05/10/20 18:55 97.8 100 19 127/75 (92) 98 Room Air 97.8 EKG: EKG: [] Radiology/Procedures: Radiology/Procedures: [] Course & Med Decision Making: Course & Med Decision Making Pertinent Labs and Imaging studies reviewed. (See chart for details) [] Procedure Let was placed topically over hemorrhoid. Once successful anesthesia was achieved lidocaine 1% approximately 5 cc injected into the area. Area was cleaned with Betadine. 11 blade was used to make an incision. Bleeding but no clot removed. Probed area for clot but not found. 4 x 4 dressing placed over the wound. Previous incision site seen. New incision 1cm above old site. Patient was having difficulty with pain. Another 5cc lidocaine was injected. Patient redosed with fentanyl. After redosing of medications patient wished no longer to proceed with procedure. States previous procedure was by general surgery and under general anesthesia. Patient has appointment with PCP on Wednesday. Will refer patient to general surgery. WIll Rx percocet. Advised to follow up with PCP on wednesday and call general surgery on domenic.. Patient advised to return to the ER if symptoms persist get worse or any new concerning symptoms arise. Renate Disclaimer: Renate Disclaimer: This electronic medical record was generated, in whole or in part, using a voice recognition dictation system. Departure Departure Impression: Primary Impression: Acute hemorrhoid Disposition: 01 HOME, SELF-CARE Condition: STABLE Referrals: MARION HINSON MD Scripts Oxycodone HCl/Acetaminophen (Percocet 5-325 mg Tablet) 1 Each Tablet 1 TAB PO PRN TID PRN for PAIN MDD 3 Tablet(s), #20 TAB 0 Refills Prov: LINDSEY CHACON I DO 05/10/20 Justicifation of Admission Dx: Justifications for Admission: Justification of Admission Dx: N/A LINDSEY CHACON I DO May 10, 2020 19:27
[2020-05-10] MEDS ORDERED: LIDOCAINE 1% Multi-Dose 20 ML VIAL. INJ ONE (19:30)
[2020-05-10] MEDS ORDERED: fentaNYL PF VIAL 100 MCG/2 ML VIAL IM ONE ×2 (19:30→20:30)
[2020-05-10] MEDS ORDERED: LIDOCAINE/EPI/TETRACAINE TOPICAL GEL 3 ML. TP ONE (19:30)
[2020-05-10] MEDS ORDERED: OXYC-325 PO (20:47)
[2020-05-10 21:00] VITALS: BP 114/62
== END 2020-05-10 21:05 | disposition home or self-care (01) ==
LOC: ER 18:49
DX: K64.9 Unspecified hemorrhoids (principal); F41.9 Anxiety disorder, unspecified; F32.9 Major depressive disorder, single episode, unspecified; E03.9 Hypothyroidism, unspecified; Z86.14 Personal history of Methicillin resistant Staphylococcus aureus infection; Z98.51 Tubal ligation status; Z98.890 Other specified postprocedural states
CPT/HCPCS: 46083; 96372; 99284; J3010; J3490

== ENCOUNTER 2021-01-17 11:36 | Emergency (ER) | payer MEDICAID ==
[~2021-01-17] VITALS: Ht 167.6 cm; Wt 90.0 kg
[~2021-01-17 11:36] MED LIST changes: +AMOX1TAB61 PO; -CLIN150C14 PO; +CLIN150C15 PO; +OXYC-325 PO; +TRAM-48 PO
[2021-01-17] MEDS ORDERED: ONDANSETRON PF 4 MG/2 ML VIAL. IVP ONE (11:45)
[2021-01-17] MEDS ORDERED: ASPIRIN CHEWABLE 81 MG TABLET. PO ONE (11:45)
[2021-01-17] MEDS ORDERED: IV NORMAL SALINE 1000ML BAG 1,000 ML IV SCH (11:45)
[2021-01-17] MEDS ORDERED: FAMOTIDINE 20 MG/2 ML VIAL IVP ONE (11:45)
--- NOTE | 2021-01-17 12:03 | PHYS DOC ---
Past Medical History Past Medical History: MRSA, Other Additional Past Medical Histor: Hemorrhoids,thyroid mass (CHRISTOPHER,LEATHA M METAL DEALER) Past Surgical History: Tubal ligation Additional Past Surgical Histo: ortho right arm, hemorrhoidectomy (JAMI WHITEBishnu Brunson METAL DEALER) Smoking Status: Never Smoker Alcohol Use: None Drug Use: None (AIMEE WHITEJASPAL Brunson METAL DEALER) General Adult EDM: Chief Complaint: HEADACHE HPI: HPI: Patient is a 35 year old female who presents with this morning at 6 AM awoke with mid chest heaviness and tightness type pain she states it does go down into the epigastric area. She states last 2 days she has had nausea vomiting and has not had much intake. She states she has not ate or drink anything today. Patient's sister at the age of 22 from an [place] 3 days after having a baby but states that her sister had some sort of heart disease. Patient has a history of hemorrhoids, thyroid cancer with removal and tubal ligation. Patient rates her discomfort about 7 out of 10. She took no medications for any of her symptoms. She states that yesterday she has also been having a migraine type headache that she has felt before in the past the back of her head that feels like somebody is pounding on the back of her head. She states that has gotten better and is very mild. Patient denies fever, shortness of breath, control use, smoking, drug use, diarrhea, syncope, dizziness, vision changes, numbness or tingling, recent fall. (JAMI WHITEBishnu Brunson METAL DEALER) Review of Systems: Review of Systems: Constitutional: Denies fever or chills. [] Eyes: Denies change in visual acuity. [] HENT: Denies nasal congestion or sore throat. [] Respiratory: Denies cough or shortness of breath. [] Cardiovascular: +chest pain or denies edema. [] GI: + Epigastric abdominal pain, +nausea, +vomiting, denies bloody stools or diarrhea. [] : Denies dysuria. [] Musculoskeletal: Denies back pain or joint pain. [] Integument: Denies rash. [] Neurologic: +headache, denies focal weakness or sensory changes. [] Endocrine: Denies polyuria or polydipsia. [] Lymphatic: Denies swollen glands. [] Psychiatric: Denies depression or anxiety. [] (LEATHA WHITE APRN) Heart Score: C/O Chest Pain: Yes HEART Score for Chest Pain: HEART Score for Chest Pain Response (Comments) Value History Slighlty/Non-Suspicious 0 ECG Normal 0 Age < 45 0 Risk Factors 1 or 2 Risk Factors 1 Troponin < Normal Limit 0 Total 1 Risk Factors: Risk Factors: DM, Current or recent (<one month) smoker, HTN, HLP, family history of CAD, obesity. Risk Scores: Score 0 - 3: 2.5% MACE over next 6 weeks - Discharge Home Score 4 - 6: 20.3% MACE over next 6 weeks - Admit for Clinical Observation Score 7 - 10: 72.7% MACE over next 6 weeks - Early Invasive Strategies (LEATHA WHITE APRN) Allergies: Allergies: Allergies Coded Allergies Type Severity Reaction Last Updated Verified I S O L A T I O N *CONTACT* Allergy Unknown 02/15/17 Yes No Known Medication Allergies Allergy Unknown 02/15/17 Yes (LEATHA WHITE APRN) Physical Exam: PE: Constitutional: Well developed, well nourished, no acute distress, non-toxic appearance. [] HENT: Normocephalic, atraumatic, bilateral external ears normal, oropharynx moist, no oral exudates, nose normal. [] Eyes: PERRLA, EOMI, conjunctiva normal, no discharge. [] Neck: Normal range of motion, no tenderness, supple, no stridor. [] Cardiovascular:Heart rate regular rhythm, no murmur [] Lungs & Thorax: Bilateral breath sounds clear to auscultation [] Abdomen: Bowel sounds normal, soft, epigastric tenderness, no masses, no pulsatile masses. [] Skin: Warm, dry, no erythema, no rash. [] Back: No tenderness, no CVA tenderness. [] Extremities: No tenderness, no cyanosis, no clubbing, ROM intact, no edema. [] Neurologic: Alert and oriented X 3, normal motor function, normal sensory function, no focal deficits noted. [] Psychologic: Affect normal, judgement normal, mood normal. [] (LEATHA WHITE APRN) EKG: EK and read by Dr. Jones is sinus rhythm and no STEMI (LEATHA WHITE APRN) Radiology/Procedures: Radiology/Procedures: [] Impression: [facility] [address] [place] [address] IMAGING REPORT Signed PATIENT: GRETTA HOPE ACCOUNT: [id number] : 1985 LOCATION: ER AGE: 35 SEX: F EXAM STATUS: PRE ER ORD. PHYSICIAN: LEATHA WHITE APRN REASON: mid sternal chest pain PROCEDURE: PORTABLE CHEST 1V INDICATION: Reason: mid sternal chest pain / Spl. Instructions: / History: COMPARISON: None. FINDINGS: Single view of chest obtained. No focal airspace consolidation. Cardiomediastinal contour unremarkable. No acute osseous abnormality. IMPRESSION: * No focal airspace consolidation or edema. Electronically signed by: Saray Caal MD (01/17/2021 12:32 PM) DESKTOP- [id number] DICTATED and SIGNED BY: SARAY CAAL MD DATE: 01/17/21 [id number] [facility] [address] [place] [address] IMAGING REPORT Signed PATIENT: GRETTA HOPE ACCOUNT: [id number] : 1985 LOCATION: ER AGE: 35 SEX: F EXAM STATUS: PRE ER ORD. PHYSICIAN: LEATHA WHITE APRN REASON: headache PROCEDURE: CT HEAD WO CONTRAST STUDY: CT head without contrast INDICATION: Headache. COMPARISON: Brain MRI 02/25/2015 TECHNIQUE: Axial CT imaging through the head without the use of intravenous co ntrast. Sagittal and coronal reformats were obtained. One or more of the following individualized dose reduction techniques were utilized for this examination: 1. Automated exposure control 2. Adjustment of the mA and/or kV according to patient size 3. Use of iterative reconstruction technique. FINDINGS: No acute intracranial hemorrhage. Duke-white matter differentiation is m aintained. No localized mass effect, midline shift or hydrocephalus. Unremarkable orbits. Three rounded scalp nodules two of which are partially mineralized typical of sebaceous cysts. Unremarkable calvarium. Normally aerated mastoid air cells and middle ears. Frothy secretions partially imaged left maxillary sinus in addition to either some secretions or mucosal thickening within posterior ethmoidal air cells on the right. Normally aerated sphenoid and frontal sinus. IMPRESSION: 1. No acute intracranial abnormality by CT to explain the patient's headache. 2. Small amount of frothy secretions layering in the left maxillary sinus and involving a portion of the posterior ethmoidal air cells on the right. Correlate clinically for symptoms of active sinusitis. 3. Several scalp sebaceous cysts also seen on the 2015 MRI. Electronically signed by: MARCELO GANT MD (01/17/2021 12:36 PM) [id number] DICTATED and SIGNED BY: MARCELO GANT MD DATE: 01/17/21 [id number] (LEATHA WHITE APRN) Course & Med Decision Making: Course & Med Decision Making Pertinent Labs and Imaging studies reviewed. (See chart for details) See HPI. Alert and oriented x4. Ambulatory with a steady gait. Speaks in full complete sentences. Skin pink warm and dry. Chest pain is not reproducible with movement or palpation. Lungs are clear to auscultation all lobes. Urinalysis shows UTI. CT head shows sinusitis. Patient's thyroid level is low and so I will tell the patient to make sure she is taking her thyroid medicine and she needs to follow-up with her primary care on this. EKG shows sinus rhythm and no STEMI. Chest x-ray is clear. She is given normal saline, Zofran, aspirin, Pepcid in the ED. Patient states with medications given her symptoms have resolved. Patient states she is ready to go home. [] (LEATHA WHITE APRN) Dragon Disclaimer: Dragon Disclaimer: This electronic medical record was generated, in whole or in part, using a voice recognition dictation system. (LEATHA WHITE APRN) Departure Departure Impression: Primary Impression: UTI (urinary tract infection) Qualified Codes: N39.0 - Urinary tract infection, site not specified Additional Impressions: Non-cardiac chest pain Nausea & vomiting Qualified Codes: R11.2 - Nausea with vomiting, unspecified Headache Qualified Codes: R51.9 - Headache, unspecified Sinusitis Qualified Codes: J01.00 - Acute maxillary sinusitis, unspecified Disposition: HOME / SELF CARE / HOMELESS Condition: STABLE Referrals: DORINDA PETIT MD (PCP) Patient Instructions: Nausea and Vomiting, Sinusitis, Urinary Tract Infection Additional Instructions: Follow-up with your primary care provider if needed. Drink plenty of fluids. Take medication as prescribed and with food. If symptoms worsen you can always return. Scripts Famotidine (PEPCID) 20 Mg Tablet 20 MG PO BID, #28 TAB Prov: LEATHA WHITE APRN 01/17/21 Ondansetron (ONDANSETRON ODT) 4 Mg Tab.rapdis 1 TAB PO PRN Q6-8HRS, #16 TAB Prov: LEATHA WHITE APRN 01/17/21 Cephalexin (CEPHALEXIN) 500 Mg Capsule 1 CAP PO TID, #21 CAP Prov: LEATHA WHITE APRN 01/17/21 Attending Signature Attending Signature I have reviewed the PA/CLUB MANAGER's note and plan of care. I was available for consultation as needed during the patient's visit in the emergency department. I agree with the clinical impression, plan, and disposition. (DORINDA JONES DO) LEATHA WHITE APRN January 17, 2021 12:03 DORINDA JONES DO January 18, 2021 06:31
[2021-01-17 12:13] LABS: BASO # 0.1 x10^3/uL (0.0-0.2); BASO % 1 % (0-3); EOS # 0.1 x10^3/uL (0.0-0.7); EOS % 2 % (0-3); HEMATOCRIT 46.7 % (36.0-47.0); HEMOGLOBIN 16.3 g/dL (12.0-15.5); LYMPH # 2.1 x10^3/uL (1.0-4.8); LYMPH % 31 % (24-48); MEAN CORPUSCULAR HEMOGLOBIN 30 pg (25-35); MEAN CORPUSCULAR HGB CONC 35 g/dL (31-37); MEAN CORPUSCULAR VOLUME 86 fL (79-100); MONO # 0.5 x10^3/uL (0.0-1.1); MONO % 7 % (0-9); NEUT % 59 % (31-73); PLATELET COUNT 277 x10^3/uL (140-400); RED CELL DISTRIBUTION WIDTH 12.7 % (11.5-14.5); WHITE BLOOD COUNT 6.8 x10^3/uL (4.0-11.0)
[2021-01-17 12:15] LABS: BILIRUBIN,URINE NEGATIVE (NEG); CLARITY,URINE CLEAR; COLOR,URINE YELLOW; NITRITE,URINE NEGATIVE (NEG); PH,URINE 7.5 (<5.0-8.0); PROTEIN,URINE NEGATIVE (NEG-TRACE)
[2021-01-17 12:18] LABS: BACTERIA,URINE FEW /HPF (0-FEW); RBC,URINE 0 /HPF (0-2)
[2021-01-17 12:19] LABS: AMORPHOUS SEDIMENT,UR PRESENT /HPF
[2021-01-17 12:26] LABS: PROTHROMBIN TIME PATIENT 12.8 SEC (11.7-14.0)
[2021-01-17 12:31] LABS: CALCIUM 9.3 mg/dL (8.5-10.1); CREATININE 0.7 mg/dL (0.6-1.0); GFR 96.4; POTASSIUM 4.1 mmol/L (3.5-5.1)
--- NOTE | 2021-01-17 12:34 | RAD ---
INDICATION: Reason: mid sternal chest pain / Spl. Instructions: / History: COMPARISON: None. FINDINGS: Single view of chest obtained. No focal airspace consolidation. Cardiomediastinal contour unremarkable. No acute osseous abnormality. IMPRESSION: * No focal airspace consolidation or edema. Electronically signed by: Joshua Jauregui MD (01/17/2021 12:32 PM) [id number]
[2021-01-17 12:36] LABS: D-DIMER 0.33 ug/mlFEU (0.00-0.50)
--- NOTE | 2021-01-17 12:38 | RAD ---
STUDY: CT head without contrast INDICATION: Headache. COMPARISON: Brain MRI 02/25/2015 TECHNIQUE: Axial CT imaging through the head without the use of intravenous contrast. Sagittal and co mandeep reformats were obtained. One or more of the following individualized dose reduction techniques were utilized for this examinat ion: 1. Automated exposure control 2. Adjustment of the mA and/or kV according to patient size 3. Use of iterative reconstruction technique. FINDINGS: No acute intracranial hemorrhage. Duke-white matter differentiation is maintained. No localized mass effect, midline shift or hydrocephalus. Unremarkable orbits. Three rounded scalp nodules two of which are partially mineralized typical of se baceous cysts. Unremarkable calvarium. Normally aerated mastoid air cells and middle ears. Frothy sec retions partially imaged left maxillary sinus in addition to either some secretions or mucosal thicke matteo within posterior ethmoidal air cells on the right. Normally aerated sphenoid and frontal sinus. IMPRESSION: 1. No acute intracranial abnormality by CT to explain the patient's headache. 2. Small amount of frothy secretions layering in the left maxillary sinus and involving a portion of the posterior ethmoidal air cells on the right. Correlate clinically for symptoms of active sinusiti s. 3. Several scalp sebaceous cysts also seen on the 2015 MRI. Electronically signed by: MARCELO GANT MD (01/17/2021 12:36 PM) [id number]
[2021-01-17 12:44] LABS: ALBUMIN 4.2 g/dL (3.4-5.0); ALBUMIN/GLOBULIN RATIO 1.2 (1.0-1.7); MAGNESIUM 2.3 mg/dL (1.8-2.4); TOTAL BILIRUBIN 0.5 mg/dL (0.2-1.0); TOTAL PROTEIN 7.7 g/dL (6.4-8.2)
[2021-01-17] MEDS ORDERED: ONDA4TAB12 PO (13:32)
[2021-01-17] MEDS ORDERED: CEPH500C PO (13:32)
[2021-01-17] MEDS ORDERED: FAMO-63 PO (13:32)
[2021-01-17 14:21] VITALS: BP 110/63
--- NOTE | 2021-01-17 18:47 | EKG ---
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
== END 2021-01-17 14:25 | disposition home or self-care (01) ==
LOC: ER 11:36
DX: N39.0 Urinary tract infection, site not specified (principal); R07.89 Other chest pain; R11.2 Nausea with vomiting, unspecified; R51.9 Headache, unspecified; J01.00 Acute maxillary sinusitis, unspecified; Z98.51 Tubal ligation status; Z86.14 Personal history of Methicillin resistant Staphylococcus aureus infection; Z91.041 Radiographic dye allergy status
CPT/HCPCS: 36415; 70450; 71045; 80053; 81001; 83690; 83735; 83880; 84443; 84484; 85025; 85379; 85610; 87077; 87086; 87186; 93005; 96361; 96374; 96375; 99285; J2405; J3490; J7030

== ENCOUNTER → 2021-12-04 | Outpatient (CLI) | payer MEDICAID ==
[~2021-12-04] MED LIST changes: +CEPH500C PO; -CLIN150C15 PO; +CLIN150C16 PO; +FAMO-63 PO; +ONDA4TAB12 PO
--- NOTE | 2021-12-04 13:54 | RAD ---
Exam Date: 12/04/2021 7:41 AM US ABDOMEN COMPLETE Indication: Reason: ABD PAIN / Spl. Instructions: / History: . TECHNIQUE: Multiple longitudinal and transverse sonographic images of the abdomen are submitted for interpretation. FINDINGS: The liver is normal in size and echogenicity. The portal vein is patent with hepatopetal flow. No focal intrahepatic abnormality is seen. The gallbladder is normal, without gallstones, gallbladder wall thickening or pericholecystic fluid. There is no biliary ductal dilatation, with the common bile duct measuring 3 mm. The spleen is normal in size and echogenicity. The visualized abdominal aorta, inferior vena cava an d pancreas are otherwise within normal limits. There is no upper abdominal ascites. The kidneys are normal in appearance, with the right kidney measuring 11.0 cm and the left kidney measuring 12.2 cm. IMPRESSION: Normal abdominal ultrasound. Electronically signed by: Ben Eli MD (12/04/2021 1:52 PM) [id number]
--- NOTE | 2021-12-04 13:56 | RAD ---
Exam Date: 12/04/2021 7:41 AM US PELVIS W/TV Indication: Reason: PELVIC PAIN / Spl. Instructions: / History: . TECHNIQUE: Multiple longitudinal and transverse sonographic images were obtained of the pelvis using a transabdominal and transvaginal approach. Color Doppler imaging was performed on the ovaries bila terally. Transvaginal imaging was included to better evaluate the uterus, ovaries, and adnexa. FINDINGS: The uterus measures 10.8 x 6.3 x 5.3 cm. The endometrial complex measures 12 mm in thickness. Uteru s is retroverted. Small fluid is seen in the endometrial cavity, nonspecific. Corpus luteum cyst noted in the left ovary. The right ovary measures 2.6 x 2.5 x 2.0 cm. The left o vary measures 3.8 x 3.5 x 2.2 cm. Color Doppler imaging demonstrates normal vascularity in the ovari es bilaterally. Trace free fluid is seen in the pelvis, nonspecific and likely physiologic. IMPRESSION: Retroverted uterus. Small fluid in the endometrial cavity is nonspecific. Corpus luteum cyst noted on the left. Electronically signed by: Ben Eli MD (12/04/2021 1:54 PM) [id number]
== END ==
LOC: US 07:41
PROVIDERS: ATTEND Family Medicine
DX: N83.12 Corpus luteum cyst of left ovary (principal); N85.4 Malposition of uterus; R10.30 Lower abdominal pain, unspecified
CPT/HCPCS: 76700; 76830; 76856